=== PATIENT | female | born 1985 ===

== ENCOUNTER 2025-03-24 05:09 | Day surgery (SDC) | payer OTHER ==
[~2025-03-24 05:09] MED LIST: EZALLOR SPRINKL10 MG PO; KLONOPIN; ZOLOFT100 MG
[2025-03-24] MEDS ORDERED: POVIDONE-IODINE 118 ML BOTT TOP ONE (07:07)
[2025-03-24] MEDS ORDERED: CEFAZOLIN SODIUM 1,000 MG VIAL ONE (07:07)
[2025-03-24] MEDS ORDERED: ZITHROMAX TRI-500 MG PO (09:38)
== END 2025-03-24 14:10 | disposition home or self-care (01) ==
LOC: CIR.AMB 05:09
PROVIDERS: ATTEND Obstetrics & Gynecology
DX: N84.0 Polyp of corpus uteri (principal); N72 Inflammatory disease of cervix uteri; N94.5 Secondary dysmenorrhea; F41.9 Anxiety disorder, unspecified; Z88.6 Allergy status to analgesic agent; Z91.018 Allergy to other foods